=== PATIENT | male | born 1955 | race Caucasian/White ===

== ENCOUNTER 2016-12-01 05:54 | Inpatient (IN) | payer MEDICARE, OTHER ==
[2016-11-12 11:41] VITALS: BMI 29.7
--- NOTE | 2016-11-30 10:24 | HP ---
Satellite [facility] - Chief Complaint Chief Complaint: right knee pain - Past Medical History Allergies/Adverse Reactions: Allergies Allergy/AdvReac Type Severity Reaction Status Date / Time No Known Allergies Allergy Verified 11/12/16 11:18 Cardiovascular: Yes: HTN Gastrointestinal: Yes: Other (hepatic/gallbladder abscess) Renal/: Yes: Renal Calculi Endocrine: Yes: Diabetes Mellitus - Current Medications Current Medications: Home Medications Medication Instructions Recorded Amlodipine Besylate [Norvasc -] 5 mg PO DAILY 08/24/14 Metoprolol Succinate [Toprol XL -] 50 mg PO DAILY 09/19/14 Glipizide/Metformin HCl 1 each PO DAILY 09/25/14 [Glipizide-Metformin 5-500 mg] Valsartan/Hydrochlorothiazide 1 each PO DAILY 09/25/14 [Valsartan-Hctz 160-12.5 mg Tab] Satellite Physical Exam - Physical Examination General Appearance: Well Nourished, Well Developed, Alert & Oriented x3 ENT: Clear Lung: Normal air movement Heart: Regular rate & rhythm Extremities: Other (right knee- + swelling, + ttp, decr rom, nvi xrays show severe tricompartmental djd) Neurological: Intact, Alert, Oriented Satellite Impression/Plan - Impression/Plan Impression: right knee djd Operative Procedure: right tyshawn tkr Date to be Performed: 12/01/16
[2016-12-01] MEDS ORDERED: TRANEXAMIC ACID 1000 MG/10 ML VIAL IVPUSH ONE (06:09)
[2016-12-01] MEDS ORDERED: CELECOXIB 200 MG CAPSULE PO ONE (06:09)
[2016-12-01] MEDS ORDERED: oxyCODONE HCL 10 MG SUSTAINED ACTING TABLET PO ONE (06:09)
[2016-12-01] MEDS ORDERED: GABAPENTIN 300 MG CAPSULE (FP) PO ONE (06:09)
[2016-12-01] MEDS ORDERED: CEFAZOLIN 1 GM/D5W 50 ML IVPB ONE (06:09)
[2016-12-01] MEDS ORDERED: MIDAZOLAM HCL 2 MG/2 ML SINGLE DOSE VIAL ONE ×2 (06:39→07:37)
[2016-12-01] MEDS ORDERED: DEXAMETHASONE SOD PHOSPHATE/PF 10 MG/ML SDV ONE (06:40)
[2016-12-01] MEDS ORDERED: ROPIVACAINE HCL 0.5% 30ML VIAL ONE (06:40)
[2016-12-01] MEDS ORDERED: ceFAZolin SODIUM 1 GM VIAL ONE (07:20)
[2016-12-01] MEDS ORDERED: VANCOMYCIN 1,000 MG VIAL (RESTRICTED TO ID ONLY) ONE (07:20)
[2016-12-01] MEDS ORDERED: oxyCODONE HCL 5 MG TABLET PO PRN (08:27)
[2016-12-01] MEDS ORDERED: PROMETHAZINE HCL 25 MG/1 ML VIAL IVPUSH PRN (08:27)
[2016-12-01] MEDS ORDERED: ROPIVACAINE 0.2% 400ML 400 ML ML NR ONE (08:27)
[2016-12-01] MEDS ORDERED: VANCOMYCIN 1,000 MG VIAL (RESTRICTED TO ID ONLY) IVPB ONE (09:17)
[2016-12-01] MEDS ORDERED: ONDANSETRON 4 MG/2 ML VIAL IVPUSH PRN (09:47)
[2016-12-01] MEDS ORDERED: ONDANSETRON 4 MG/2 ML VIAL IVPB PRN (10:07)
[2016-12-01] MEDS ORDERED: MAG HYDROX/AL HYDROX/SIMETH 30 ML UNIT-DOSE CUP PO PRN (10:07)
[2016-12-01] MEDS ORDERED: MAGNESIUM HYDROX 2400MG/30ML ORAL SUSPENSION 30 ML CUP PO PRN (10:07)
--- NOTE | 2016-12-01 10:12 | OP ---
Operative Note - Note: Operative Date: 12/01/16 (see) Pre-Operative Diagnosis: right knee djd Operation: right tyshawn tkr Post-Operative Diagnosis: Same as Pre-op Surgeon: Tim Santillan Assistant Wrestling Coach: Carlitos Mims Anesthesiologist/SKILLS AUDITOR: Adelina Booth Anesthesia: Spinal, Local Specimens Removed: bone fragments Estimated Blood Loss (mls): 50 (tourniquet) Operative Report Dictated: Yes
[2016-12-01] MEDS ORDERED: LACTATED RINGERS SOLUTION 1,000 ML IV SCH (10:15)
[2016-12-01] MEDS: ACETAMINOPHEN 1000 MG/100 ML VIAL (NON FORMULARY) IVPB ONE (10:30)
[2016-12-01] MEDS: oxyCODONE HCL 5 MG TABLET PO PRN (14:40)
[2016-12-01] MEDS: INSULIN SLIDING SCALE (NOVOLOG) 1 VIAL SQ SCH ×2 (17:27→22:11)
[2016-12-01] MEDS: CEFAZOLIN 2 GM/D5W 50 ML IVPB SCH ×2 (17:27→23:35)
[2016-12-01] MEDS ORDERED: INSULIN (NOVOLOG) ASPART 100 UNITS/ML 10ML VIAL ONE ×2 (17:52→22:13)
--- NOTE | 2016-12-01 19:26 | SPEC ---
DATE OF SURGERY: 12/01/2016 OPERATION: Right total knee replacement with robotic-assisted navigation (MAKOplasty). PREOPERATIVE DIAGNOSIS: Degenerative joint disease, right knee. POSTOPERATIVE DIAGNOSIS: Degenerative joint disease, right knee. SURGEON: Tim Santillan M.D. WILDLIFE CONSERVATIONIST: Ralph Howe ANESTHESIA: Regional and spinal. CLOSURE: A Triathlon knee system with a 3 femur, a 3 tibia, an 11 polyethylene, a 32 patella. A number 1 Vicryl fascia, 0 and 2-0 for subcutaneous, 3-0 Monocryl subcuticular with skin glue for skin, 4-0 undyed Vicryl for pin sites. ESTIMATED BLOOD LOSS: Negligible. TOURNIQUET TIME: Approximately 80 minutes. COMPLICATIONS: None CONDITION: To recovery room in stable condition. DESCRIPTION OF PROCEDURE: Patient was taken to the operating room November 30, 2016. Regional and spinal anesthesia were administered by the anesthesiologist. IV antibiotics and TXA were administered prophylactically prior to the case. A well-padded pneumatic tourniquet was placed on the right proximal thigh. The right lower extremity was prepped and draped in the usual sterile fashion. An approximately 12-cm midline incision centered over the patella was incised. Hemostasis was achieved with Bovie cautery. Sharp dissection was carried down to the level of the extensor mechanism the procedure. A medial parapatellar arthrotomy was then performed. The patella was inverted and the knee was flexed up to 90 degrees. Subperiosteal dissection was performed on the anteromedial proximal tibia until the knee was able to be brought forward. This was facilitated by taking the ACL, the PCL, and the medial and lateral menisci. A checkpoint was malleted into the medial femoral condyle and into the anteromedial proximal tibia. Through 2two small stab incisions in the mid femur and 2two in the mid tibia, 2two bicortical pins were drilled, achieving excellent height. Two of these pins were attached to the navigation arrays. The knee was then registered with the navigation device by rotating the hip to ascertain the center of rotation of the hip with points on both the medial and lateral malleoli and multiple points on both the femur and on the tibia. Excellent registration was confirmed by "popping the bubbles.". At this time, the osteophytes on the edges of the proximal tibia both medially and laterally, as well as on the medial lateral femoral condyles underneath the collateral ligaments were debrided. The knee was stressed in extension and in flexion to confirm good gaps. The virtual positions of the components were then optimized in order to have a balanced knee, both in extension and in 90 degrees of flexion. The sizes of the components were also optimized to get good coverage over both the tibia and the femur and to produce equal gaps in extension and flexion with the appropriate amount of external rotation of the femur, the appropriate amount of flexion of the femoral component and the appropriate slope on the tibial component. At this time, the robot was brought into the field and registered. The robot was used to cut the proximal tibia and to make all the cuts on the distal femur. The bone was then removed. A spacer block in extension and flexion was used to confirm equal balancing of the component in both extension and 90 degrees of flexion. The box for the posterior cruciate sacrificing component was then performed and a trial component on the femur and tibia was applied. The femoral component was clipped into place with the appropriate external rotation. This was confirmed by the navigation device, ensuring the appropriate position of the tibial component on the proximal tibia. The patella was calipered for thickness and osteotomized at the appropriate level. A lollipop was used to drill the three lugholes in the patella and then a trial component was applied. The knee was taken through a range of motion and found to have excellent tracking of the patella from full extension to full flexion, with good stability, varus/valgus throughout range of motion. The trial components were then removed. Before removing the tibial tray, the keyhole was made. The knee was then thoroughly irrigated with antibiotic irrigation. The real components were then cemented in, using modern generation cement techniques with antibiotic cement and pressurization. After the cement was hardened, the knee was thoroughly inspected to remove all excess cement. The real polyethylene component was then clipped into place. Again, range of motion, stability and tracking were found to be excellent throughout. The knee was then pulse antibiotic irrigated and dried. Vancomycin powder was placed into the knee. The checkpoints were removed. The medial parapatellar arthrotomy was then closed using number 1 Vicryl interrupted suture. The knee was again taken through range of motion and found to have no undue tension on the repair and good tracking throughout. The subcutaneous was closed with 0 and 2-0 Vicryl and 3-0 Monocryl subcuticular for skin with skin glue. The pins were removed in the femur and the tibia and pulse antibiotic irrigated and closed with 4-0 undyed Vicryl. Sterile Aquacel dressing followed by a Nails dressing was applied. The tourniquet was then deflated. One more dose of TXA was administered at the end of the case. The patient was awakened from anesthesia and transferred to the recovery room in stable condition. X-rays revealed good position of the components. There were no complications. Estimated blood loss was negligible. Total tourniquet time was approximately 80 minutes. Luci PRINCE/[id number]
[2016-12-01] MEDS: oxyCODONE HCL 10 MG SUSTAINED ACTING TABLET PO SCH (22:09)
[2016-12-01] MEDS: GABAPENTIN 300 MG CAPSULE (FP) PO SCH (22:09)
[2016-12-01] MEDS: SENNOSIDES/DOCUSATE COMBO (SENNA PLUS) TABLET (UD) PO SCH (22:09)
[2016-12-01] MEDS: ACETAMINOPHEN 325 MG TABLET (FP) PO SCH (23:36)
[2016-12-02] MEDS ORDERED: INSULIN (NOVOLOG) ASPART 100 UNITS/ML 10ML VIAL ONE (06:29)
[2016-12-02] MEDS: metFORMIN HCL 500 MG TABLET (FP) PO SCH (06:31)
[2016-12-02] MEDS: ACETAMINOPHEN 325 MG TABLET (FP) PO SCH ×4 (06:31→18:13)
[2016-12-02] MEDS: glipiZIDE 5 MG TABLET (FP) PO SCH (06:32)
[2016-12-02] MEDS: INSULIN SLIDING SCALE (NOVOLOG) 1 VIAL SQ SCH ×6 (06:32→21:30)
--- NOTE | 2016-12-02 07:59 | PN ---
Progress Note (short form) - Note Progress Note: Ortho Pt seen and examined s/p right tyshawn tkr pod #1 Selected Entries 12/02/16 06:07 Temperature 98.5 F Pulse Rate 65 Respiratory 19 Rate Blood Pressure 140/78 dressing c/d/i, calf soft, nt rom 0-70, nvi a/p PT dvt ppx pain control d/c home tomorrow if stable
[2016-12-02] MEDS: ACETAMINOPHEN 1000 MG/100 ML VIAL (NON FORMULARY) IVPB ONE (08:02)
[2016-12-02] MEDS: LACTATED RINGERS SOLUTION 1,000 ML IV SCH ×2 (08:03→08:09)
[2016-12-02] MEDS: ASPIRIN 325 MG TABLET PO SCH (08:09)
[2016-12-02 08:29] LABS: MCH 26.5 pg (25.7-33.7); MCHC 32.7 g/dl (32.0-35.9); MEAN CELL VOLUME 81.2 fl (80-96); MEAN PLT VOLUME 9.3 fl (7.5-11.1); PLATELET COUNT 281 K/MM3 (134-434); WHITE BLOOD COUNT 13.1 K/mm3 (4.0-10.8)
[2016-12-02] MEDS: MULTIVITAMINS (DAILY MVI) TABLET (FP) PO SCH (09:29)
[2016-12-02] MEDS: VALSARTAN 160 MG TABLET (UD) PO SCH (09:29)
[2016-12-02] MEDS: GABAPENTIN 300 MG CAPSULE (FP) PO SCH ×2 (09:29→21:29)
[2016-12-02] MEDS: amLODIPine BESYLATE 5 MG TABLET (FP) PO SCH (09:29)
[2016-12-02] MEDS: oxyCODONE HCL 10 MG SUSTAINED ACTING TABLET PO SCH ×2 (09:29→21:29)
[2016-12-02] MEDS: SENNOSIDES/DOCUSATE COMBO (SENNA PLUS) TABLET (UD) PO SCH ×2 (09:29→21:30)
[2016-12-02] MEDS: PANTOPRAZOLE 40 MG TABLET (FP) PO SCH (09:29)
[2016-12-02] MEDS: METOPROLOL SUCCINATE 50 MG TAB.SR.24H (FP) PO SCH (09:29)
[2016-12-02] MEDS: HYDROCHLOROTHIAZIDE 12.5 MG CAPSULE (FP) PO SCH (09:29)
[2016-12-02] MEDS ORDERED: PATIENT'S OWN MEDICATION (NON-FORMULARY) (Valsartan/Hydrochlorothiazide [Valsartan-Hctz 16 PO SCH (10:00)
[2016-12-02] MEDS ORDERED: PATIENT'S OWN MEDICATION (NON-FORMULARY) (Glipizide/Metformin Hcl [Glipizide-Metformin 5-5 PO SCH (10:00)
--- NOTE | 2016-12-02 13:13 | PN ---
Progress Note (short form) - Note Progress Note: ANESTHESIOLOGY POST-OP CHECK 61M s/p right knee replacement under spinal anesthesia with adductor cancal block and catheter and tibial nerve block, POD #1. no acute complaints. Denies N/V, backache, headache, numbness, weakness. Pain 3/10 and tolerable. Ambulating and voiding. Vital Signs Temperature 98.5 F 12/02/16 06:07 Pulse Rate 65 12/02/16 06:07 Respiratory Rate 19 12/02/16 06:07 Blood Pressure 140/78 12/02/16 06:07 O2 Sat by Pulse Oximetry (%) 99 12/02/16 06:09 Active Medications Acetaminophen (Tylenol -) 650 mg PO Q6H [facility] Stop: 12/04/16 17:59 Last Admin: 12/02/16 11:45 Dose: 650 mg Al Hydroxide/Mg Hydroxide (Mylanta Oral Suspension -) 30 ml PO Q4H PRN PRN Reason: DYSPEPSIA Amlodipine Besylate (Norvasc -) 5 mg PO DAILY [facility] Last Admin: 12/02/16 09:29 Dose: 5 mg Aspirin (Asa -) 325 mg PO DAILY@0800 [facility] Last Admin: 12/02/16 08:09 Dose: 325 mg Fentanyl (Sublimaze Injection -) 25 mcg IVPUSH [id number] PRN PRN Reason: PAIN Stop: 12/04/16 08:28 Gabapentin (Neurontin -) 300 mg PO BID [facility] Last Admin: 12/02/16 09:29 Dose: 300 mg Glipizide (Glucotrol -) 5 mg PO [facility] Last Admin: 12/02/16 06:32 Dose: 5 mg Hydrochlorothiazide (Hctz -) 12.5 mg PO DAILY [facility] Last Admin: 12/02/16 09:29 Dose: 12.5 mg Lactated Ringer's (Lactated Ringers Solution) 1,000 mls @ 125 mls/hr IV ASDIR [facility] Last Admin: 12/02/16 08:09 Dose: Not Given Insulin Aspart (Novolog Vial Sliding Scale -) 1 vial SQ ACHS [facility] PRN Reason: Protocol Last Admin: 12/02/16 11:44 Dose: Not Given Magnesium Hydroxide (Milk Of Magnesia -) 30 ml PO PRN PRN PRN Reason: CONSTIPATION Metformin HCl (Glucophage -) 500 mg PO ACBK [facility] Last Admin: 12/02/16 06:31 Dose: 500 mg Metoprolol Succinate (Toprol Xl -) 50 mg PO DAILY [facility] Last Admin: 12/02/16 09:29 Dose: 50 mg Multivitamins/Minerals/Vitamin C (Tab-A-Vit -) 1 tab PO DAILY [facility] Last Admin: 12/02/16 09:29 Dose: 1 tab Ondansetron HCl (Zofran Injection) 4 mg IVPB Q6H PRN PRN Reason: NAUSEA Oxycodone HCl (Oxycontin -) 10 mg PO BID [facility] Stop: 12/04/16 21:59 Last Admin: 12/02/16 09:29 Dose: 10 mg Oxycodone HCl (Roxicodone -) 5 mg PO Q4H PRN PRN Reason: PAIN LEVEL 1-5 Stop: 12/04/16 08:27 Oxycodone HCl (Roxicodone -) 10 mg PO Q4H PRN PRN Reason: PAIN LEVEL 6-10 Stop: 12/04/16 09:46 Last Admin: 12/01/16 14:40 Dose: 10 mg Pantoprazole Sodium (Protonix -) 40 mg PO DAILY [facility] Last Admin: 12/02/16 09:29 Dose: 40 mg Senna/Docusate Sodium (Pericolace -) 2 tablet PO BID [facility] Last Admin: 12/02/16 09:29 Dose: 2 tablet Valsartan (Diovan -) 160 mg PO DAILY [facility] Last Admin: 12/02/16 09:29 Dose: 160 mg Gen: Awake, alert Ext: No sensory or motor deficits of B/L lower extremities. Adductor canal catheter sire clean, dry, intact. No apparent anesthesia complications. Pain well controlled. Will pull adductor canal catheter tomorrow. Continue management as per primary team.
[2016-12-02] MEDS: oxyCODONE HCL 5 MG TABLET PO PRN ×2 (15:36→20:45)
[2016-12-02 21:54] LABS: PLATELET ESTIMATE ADEQUATE (NORMAL)
[2016-12-02 21:55] LABS: ANISOCYTOSIS 2+
[2016-12-03] MEDS: ACETAMINOPHEN 325 MG TABLET (FP) PO SCH ×2 (05:04)
[2016-12-03] MEDS: oxyCODONE HCL 5 MG TABLET PO PRN ×2 (05:05→08:07)
[2016-12-03 06:23] VITALS: BP 134/70; PULSE 71; TEMP 99.3
[2016-12-03] MEDS: INSULIN SLIDING SCALE (NOVOLOG) 1 VIAL SQ SCH ×2 (06:48→11:41)
[2016-12-03] MEDS: glipiZIDE 5 MG TABLET (FP) PO SCH (06:48)
[2016-12-03] MEDS: metFORMIN HCL 500 MG TABLET (FP) PO SCH (06:48)
[2016-12-03] MEDS: LACTATED RINGERS SOLUTION 1,000 ML IV SCH (08:05)
[2016-12-03] MEDS: ASPIRIN 325 MG TABLET PO SCH (08:05)
--- NOTE | 2016-12-03 08:17 | PN ---
Progress Note (short form) - Note Progress Note: Ortho Pt seen and examined s/p right tyshawn tkr pod #2 Selected Entries 12/03/16 06:00 Temperature 99.3 F Pulse Rate 71 Respiratory 18 Rate Blood Pressure 134/70 Laboratory Tests 12/02/16 07:25 WBC 13.1 H Hgb 12.2 Hct 37.2 Plt Count 281 D dressing c/d/i, calf soft, nt rom 0-70, nvi a/p PT dvt ppx pain control d/c home today f/u in 1 week
--- NOTE | 2016-12-03 08:18 | DS ---
Physical Examination Vital Signs: Vital Signs Temperature 99.3 F 12/03/16 06:00 Pulse Rate 71 12/03/16 06:00 Respiratory Rate 18 12/03/16 06:00 Blood Pressure 134/70 12/03/16 06:00 O2 Sat by Pulse Oximetry (%) 98 12/03/16 06:00 Discharge Summary Reason For Visit: OSTEOARTHRITIS Procedures: Principal: s/p right tyshawn tkr Hospital Course: admitted for elective right tyshawn tkr, uneventful post-op, stable for d/c Condition: Good - Instructions Diet, Activity, Other Instructions: Post-op Instructions-Total Knee Replacement Call the office for a follow-up appointment in 1 week - [phone] Aspirin 325mg daily for 6 weeks. Pain medication was sent into your pharmacy. Apply Graduated Compression Stockings (TEDs) to both lower extremities- remove daily for hygiene ONLY Apply Sequential Compression Device (SCDs) to both Lower extremities remove for PT and hygiene ONLY Apply cold packs to affected area for 15 minutes every 2 hours. Physical Therapist will come to your home for the first 5 days. You will be set up with outpatient PT at your first post-operative visit. Patient may ambulate as tolerated-encourage self care (at least every 2-3 hours while awake) with walker or cane Maintain Aquacel (waterproof) dressing to operative wound (will be removed by surgeon at first office visit) Shower with Aquacel dressing in place-if Aquacel integrity compromised, remove and apply dry sterile dressing and notify Orthopedist. DO NOT SHOWER unless Orthopedists approves without Aquacel dressing CONTACT THE OFFICE FOR ANY CHANGE IN YOUR CONDITION (for example-fever greater than 102 degrees,excessive bleeding from operative site, purulent drainage, severe swelling or pain) GO TO THE EMERGENCY ROOM IF THERE IS A MEDICAL EMERGENCY Knee Precautions: * Keep a rolled towel under affected heel while in bed or chair (to keep knee in extension) * Keep affected leg elevated except during mealtimes * DO NOT PLACE PILLOW UNDER AFFECTED KNEE * If you have any questions, please do not hesitate to call the office - [phone]. Referrals: Tim Santillan MD [Staff Physician] - Disposition: VNS/HOME HEALTH CARE - Home Medications Comprehensive Discharge Medication List: Ambulatory Orders Amlodipine Besylate [Norvasc -] 5 mg PO DAILY 08/24/14 Metoprolol Succinate [Toprol XL -] 50 mg PO DAILY 09/19/14 Glipizide/Metformin HCl [Glipizide-Metformin 5-500 mg] 1 each PO DAILY 09/25/14 Valsartan/Hydrochlorothiazide [Valsartan-Hctz 160-12.5 mg Tab] 1 each PO DAILY 09/25/14 Aspirin [ASA -] 325 mg PO DAILY@0800 tablet 12/01/16 Oxycodone HCl/Acetaminophen [Percocet 5-325 mg Tablet -] 1 - 2 tab PO Q6H #50 tab MDD 8 12/01/16
[2016-12-03 08:25] LABS: MCH 26.3 pg (25.7-33.7); MCHC 32.5 g/dl (32.0-35.9); MEAN CELL VOLUME 80.7 fl (80-96); MEAN PLT VOLUME 9.1 fl (7.5-11.1); PLATELET COUNT 267 K/MM3 (134-434); RDW 20.5 % (11.9-15.9); WHITE BLOOD COUNT 11.9 K/mm3 (4.0-10.8)
[2016-12-03] MEDS: METOPROLOL SUCCINATE 50 MG TAB.SR.24H (FP) PO SCH (09:56)
[2016-12-03] MEDS: oxyCODONE HCL 10 MG SUSTAINED ACTING TABLET PO SCH (09:56)
[2016-12-03] MEDS: PANTOPRAZOLE 40 MG TABLET (FP) PO SCH (09:56)
[2016-12-03] MEDS: VALSARTAN 160 MG TABLET (UD) PO SCH (09:56)
[2016-12-03] MEDS: HYDROCHLOROTHIAZIDE 12.5 MG CAPSULE (FP) PO SCH (09:56)
[2016-12-03] MEDS: amLODIPine BESYLATE 5 MG TABLET (FP) PO SCH (09:56)
[2016-12-03] MEDS: MULTIVITAMINS (DAILY MVI) TABLET (FP) PO SCH (09:56)
[2016-12-03] MEDS: SENNOSIDES/DOCUSATE COMBO (SENNA PLUS) TABLET (UD) PO SCH (09:56)
[2016-12-03] MEDS: GABAPENTIN 300 MG CAPSULE (FP) PO SCH (09:56)
--- NOTE | 2016-12-03 12:12 | PN ---
Progress Note (short form) - Note Progress Note: S: Pt. in chair. Very comfortable. O: VAS 0-10 A/P: Pod #2 s/p right tkr. doing well 1. Adductor canal cath pulled. tip intact. no complications.
--- NOTE | 2016-12-09 11:19 | PATH ---
Surgical Pathology Report Patient Name: MELISSA YEH Med. Rec. #: [id number] /Age/Gender: 1955 (Age: 61) / M Account: [id number] Location: [facility] MED-SURG Taken: 12/01/2016 Received: 12/01/2016 Reported: 12/04/2016 Physicians: Tim Santillan M.D. Specimen(s) Received RIGHT KNEE BONE AND TISSUE FRAGMENTS Clinical History Right knee osteoarthritis Final Diagnosis KNEE BONE AND TISSUE, RIGHT, TOTAL KNEE REPLACEMENT: DEGENERATIVE JOINT DISEASE. Electronically Signed Cici Young M.D. Gross Description Received in formalin labeled "right knee bone and tissue," is a 13.0 x 12.0 x 2.5 cm aggregate of multiple luu-yellow, irregular portions of bone and soft tissue. The tibial plateau measures 7.5 x 5.0 x 1.2 cm. There is a 1.6 cm greatest dimension area of eburnation present. The remaining articular surfaces are luu-yellow and focally granular. The underlying trabecular bone is yellow and hard. Tipple Worker sections are submitted in one cassette, following decalcification. /12/02/201612/02/2016
== END 2016-12-03 11:50 | disposition home health service (06) | DRG 470 ==
LOC: FM/S 05:54
PROVIDERS: ADMIT Orthopaedic Surgery; ATTEND Orthopaedic Surgery
PROC: 8E0Y0CZ Robotic Assisted Procedure of Lower Extremity, Open Approach (ICD-10-PCS; 2016-12-01)
PROC: 0SRC0J9 Replacement of Right Knee Joint with Synthetic Substitute, Cemented, Open Approach (ICD-10-PCS; principal; 2016-12-01 08:34)
DX: M17.11 Unilateral primary osteoarthritis, right knee (principal); I10 Essential (primary) hypertension; E11.9 Type 2 diabetes mellitus without complications
CPT/HCPCS: 36415; 73560-TC-RT; 85027; 88304-TC; 88311-TC; 94010; 94760; 97116-GP; 97162-PG

== ENCOUNTER 2022-12-09 09:40 | Day surgery (SDC) | payer OTHER ==
[2022-12-08 10:04] VITALS: BMI 30.2
[2022-12-09 11:57] VITALS: RESP 20; TEMP 97.4
[2022-12-09 13:04] VITALS: BP 107/69; PULSE 62
== END 2022-12-09 12:25 | disposition home or self-care (01) ==
LOC: FASU-ENDO 09:40
PROVIDERS: ATTEND Internal Medicine Gastroenterology
PROC: 0DB68ZX Excision of Stomach, Via Natural or Artificial Opening Endoscopic, Diagnostic (ICD-10-PCS; 2022-12-09)
PROC: 0DB48ZX Excision of Esophagogastric Junction, Via Natural or Artificial Opening Endoscopic, Diagnostic (ICD-10-PCS; 2022-12-09)
PROC: 0DB98ZX Excision of Duodenum, Via Natural or Artificial Opening Endoscopic, Diagnostic (ICD-10-PCS; principal; 2022-12-09 11:35)
DX: K21.00 Gastro-esophageal reflux disease with esophagitis, without bleeding (principal); K29.50 Unspecified chronic gastritis without bleeding; K31.A12 Gastric intestinal metaplasia without dysplasia, involving the body (corpus); Z98.84 Bariatric surgery status
CPT/HCPCS: 82962; 88305-TC; 88342-TC

== ENCOUNTER 2023-03-03 09:10 | Day surgery (SDC) | payer OTHER ==
[2023-02-23 15:36] VITALS: BMI 30.2
[2023-03-03 11:08] VITALS: TEMP 97.3
[2023-03-03 11:23] VITALS: BP 107/71; PULSE 71; RESP 16
== END 2023-03-03 11:35 | disposition home or self-care (01) ==
LOC: FASU-ENDO 09:10
PROVIDERS: ATTEND Internal Medicine Gastroenterology
PROC: 0DBP8ZX Excision of Rectum, Via Natural or Artificial Opening Endoscopic, Diagnostic (ICD-10-PCS; 2023-03-03)
PROC: 0DBM8ZX Excision of Descending Colon, Via Natural or Artificial Opening Endoscopic, Diagnostic (ICD-10-PCS; 2023-03-03)
PROC: 0DBK8ZX Excision of Ascending Colon, Via Natural or Artificial Opening Endoscopic, Diagnostic (ICD-10-PCS; principal; 2023-03-03 10:42)
DX: Z12.11 Encounter for screening for malignant neoplasm of colon (principal); D12.0 Benign neoplasm of cecum; K63.5 Polyp of colon; K62.1 Rectal polyp; K64.1 Second degree hemorrhoids; K57.30 Diverticulosis of large intestine without perforation or abscess without bleeding
CPT/HCPCS: 82962

== ENCOUNTER 2023-09-07 15:59 | Emergency (ER) | payer OTHER ==
[2023-09-07 17:12] VITALS: BMI 29.9
[2023-09-07 17:36] VITALS: BP 122/78; PULSE 88; RESP 18; TEMP 98.5
[2023-09-07] MEDS ORDERED: LIDOCAINE 5% TOPICAL PATCH ONE (18:22)
[2023-09-07] MEDS: LIDOCAINE 5% TOPICAL PATCH TP ONE (18:27)
[2023-09-07] MEDS ORDERED: LIDOCAINE PATCH REMOVAL MC SCH (22:00)
== END 2023-09-07 19:02 | disposition home or self-care (01) ==
LOC: FER 15:59
DX: M25.551 Pain in right hip (principal); W22.8XXA Striking against or struck by other objects, initial encounter
CPT/HCPCS: 72170-TC-FY; 73521-TC-FY; 99283-25

== ENCOUNTER 2024-02-09 05:06 | Day surgery (SDC) | payer OTHER ==
[2024-02-08 17:07] VITALS: BMI 29.9
[~2024-02-09 05:06] MED LIST: ACETAMINOPHEN 325 MG TABLET (FP) PO PRN
[2024-02-09] MEDS ORDERED: LIDOCAINE HCL/PF 1% SDV 5ML VIAL ONE (07:28)
[2024-02-09] MEDS ORDERED: BSS (NA/CA/MG/K) BALANCED SALT SOLUTION OPHTH SOLN 15 ML BOTTLE ONE (07:28)
[2024-02-09] MEDS ORDERED: TETRACAINE 0.5% OPHTH SOLN 2 ML BOTTLE ONE (07:28)
[2024-02-09] MEDS ORDERED: POVIDONE-IODINE 5% OPHTHALMIC PREP 30 ML SOLUTION ONE (07:28)
[2024-02-09 08:18] VITALS: RESP 18
[2024-02-09] MEDS ORDERED: CYCLOPENTOLATE HCL 1% OPHTH SOLN 2 ML BOTTLE ONE (09:31)
[2024-02-09] MEDS ORDERED: OFLOXACIN 0.3% OPHTHALMIC SOLUTION 5 ML BOTTLE ONE (09:31)
[2024-02-09] MEDS ORDERED: KETOROLAC TROMETHAMINE 0.5% EYE DROP 1 DROP DROPS ONE (09:31)
[2024-02-09] MEDS ORDERED: TROPICAMIDE 1% OPHTH SOLN 15 ML BOTTLE ONE (09:31)
[2024-02-09] MEDS: TROPICAMIDE 1% OPHTH SOLN 15 ML BOTTLE OP SCH (09:42)
[2024-02-09] MEDS: KETOROLAC TROMETHAMINE 0.5% EYE DROP 1 DROP DROPS OP SCH (09:42)
[2024-02-09] MEDS: CYCLOPENTOLATE HCL 1% OPHTH SOLN 2 ML BOTTLE OP SCH (09:42)
[2024-02-09] MEDS: OFLOXACIN 0.3% OPHTHALMIC SOLUTION 5 ML BOTTLE OP SCH (09:43)
[2024-02-09] MEDS: PHENYLEPHRINE 2.5% OPHTH SOLN 15 ML BOTTLE OP SCH (09:43)
[2024-02-09] MEDS ORDERED: MIDAZOLAM HCL 2 MG/2 ML SINGLE DOSE VIAL ONE (11:09)
[2024-02-09] MEDS: TETRACAINE 0.5% OPHTH SOLN 2 ML BOTTLE OD ONE ×2 (11:25)
[2024-02-09] MEDS: LIDOCAINE HCL 1% PRESERVATIVE FREE - 30ML VIAL IO ONE ×2 (11:35)
[2024-02-09] MEDS: CHONDROITIN SU A/HYALUR SOD 1 KIT IO ONE ×2 (11:37)
[2024-02-09] MEDS: EPINEPHrine 1:1,000 1,000 MCG/ML ML SQ ONE ×2 (11:40)
[2024-02-09 12:46] VITALS: BP 153/90; PULSE 98; TEMP 97.8
== END 2024-02-09 12:35 | disposition home or self-care (01) ==
LOC: JASU-SURG 05:06
PROVIDERS: ATTEND Ophthalmology
PROC: 08RJ3JZ Replacement of Right Lens with Synthetic Substitute, Percutaneous Approach (ICD-10-PCS; principal; 2024-02-09 11:00)
DX: H26.9 Unspecified cataract (principal)
CPT/HCPCS: 36415; 82010; 82962; V2632